=== PATIENT | male | born 1975 | race Caucasian/White ===

== ENCOUNTER → 2020-04-05 | Outpatient (CLI) | payer BC, MEDICAID ==
[~2020-04-05] MED LIST: MELO7.5T46 PO; PRD50T PO
--- NOTE | 2020-04-05 12:33 | Diagnostic Imaging Report ---
EXAMINATION: Lumbar spine 11:42 a.m. INDICATION: Left hip pain. AP, lateral and spot lateral views were obtained. There are no prior studies available for comparison. The lateral view shows the vertebral body heights and alignment to be generally within normal limits. The intervertebral spaces are fairly well-maintained. There is no fracture or acute bony abnormality identified. There is no sign of a paraspinal mass. The sacroiliac joints are symmetrical and within normal limits. IMPRESSION: 1. There is no evidence for an acute bony abnormality. 2. If there is clinical concern regarding spinal stenosis or nerve root encroachment, then MRI would be recommended for further evaluation. Dictated by: Dictated on workstation # [id number]
== END ==
LOC: RAD 11:31
PROVIDERS: ATTEND Chiropractor
DX: M54.17 Radiculopathy, lumbosacral region (principal); M99.03 Segmental and somatic dysfunction of lumbar region; M99.04 Segmental and somatic dysfunction of sacral region; M99.02 Segmental and somatic dysfunction of thoracic region
CPT/HCPCS: 72100

== ENCOUNTER 2020-04-06 13:34 | Emergency (ER) | payer BC, MEDICAID ==
[~2020-04-06] VITALS: Ht 178 cm; Wt 68.0 kg
--- NOTE | 2020-04-06 14:21 | ED Chest Pain ---
General Chief Complaint: Chest Pain Stated Complaint: CP, ARM AND LEG NUMBNESS Source: patient Exam Limitations: no limitations History of Present Illness Date Seen by Provider: Apr 06, 2020 Time Seen by Provider: 14:15 Initial Comments Patient is a 44-year-old male who presents to the emergency room today with a chief complaint of burning substernal chest discomfort that is nonradiating. Onset after lifting up a piece of heavy plywood at approximately 1230 this afternoon. Patient states he had tingling in all of his extremities and felt not quite right. Patient states that he became a little short of breath but denies any diaphoresis or nausea. Patient has never had chest pain before. Patient was recently started on prednisone and meloxicam for some hip pain after lifting a heavy 5 gallon bucket approximately a couple of months ago. Patient was seen by his chiropractor and had some x-rays done of his hip and then was put on the meloxicam and prednisone. Patient states he took the prednisone at approximately 4am this morning. Patient is a heavy smoker. He has no history of hypertension. He has a family history of coronary artery disease in grandparents his maternal grandfather in his 40s from a heart attack. His father in his 60s to 70s from a heart related illness. Patient is concerned about his elevated blood pressure in the 130s over 90s and his rapid heart rate. No recent illnesses, fever, chills, congestion, GI or symptoms. Patient has had a little bit of diarrhea in the last couple of days. All other review of systems reviewed and negative except as stated above. Timing/Duration: 1-3 hours Severity/Quality: mild, burning Location: substernal Radiation: no radiation Activities at Onset: activity Prior CP/Workup: no prior chest pain, no prior cardiac workup ASA po SOCK DRIER: Yes Associated Symptoms: denies symptoms Allergies and Home Medications Allergies Coded Allergies: No Known Drug Allergies (Unverified , 04/06/20) Home Medications Meloxicam 7.5 Mg Tablet, 7.5 MG PO DAILY, (Reported) Patient Home Medication List Home Medication List Reviewed: Yes Review of Systems Review of Systems Constitutional: no symptoms reported, see HPI EENTM: No Symptoms Reported Respiratory: No Symptoms Reported Cardiovascular: Chest Pain Gastrointestinal: No Symptoms Reported Genitourinary: No Symptoms Reported Musculoskeletal: no symptoms reported Skin: no symptoms reported All Other Systems Reviewed Negative Unless Noted: Yes Past Fdhqojg-Pcrhwu-Videts Hx Patient Social History Recent Foreign Travel: No Contact w/Someone Who Travel: No Physical Exam Vital Signs Vital Signs - First Documented 04/06/20 14:07 Temp 36.8 Pulse 98 Resp 18 B/P (MAP) 176/84 (114) Pulse Ox 98 O2 Delivery Room Air Capillary Refill : Height, Weight, BMI Height: '" Weight: lbs. oz. kg; BMI Method: General Appearance: No Apparent Distress, WD/WN Progress/Results/Core Measures Results/Orders Lab Results Laboratory Tests Test 04/06/20 14:20 Range/Units White Blood Count 13.7 H 4.3-11.0 10^3/uL Red Blood Count 4.46 4.30-5.52 10^6/uL Hemoglobin 15.3 13.3-17.7 g/dL Hematocrit 44 40-54 % Mean Corpuscular Volume 98 80-99 fL Mean Corpuscular Hemoglobin 34 25-34 pg Mean Corpuscular Hemoglobin Concent 35 32-36 g/dL Red Cell Distribution Width 12.1 10.0-14.5 % Platelet Count 294 130-400 10^3/uL Mean Platelet Volume 9.6 9.0-12.2 fL Immature Granulocyte % (Auto) 0 % Neutrophils (%) (Auto) 80 H 42-75 % Lymphocytes (%) (Auto) 11 L 12-44 % Monocytes (%) (Auto) 8 0-12 % Eosinophils (%) (Auto) 0 0-10 % Basophils (%) (Auto) 0 0-10 % Neutrophils # (Auto) 11.0 H 1.8-7.8 10^3/uL Lymphocytes # (Auto) 1.5 1.0-4.0 10^3/uL Monocytes # (Auto) 1.1 H 0.0-1.0 10^3/uL Eosinophils # (Auto) 0.0 0.0-0.3 10^3/uL Basophils # (Auto) 0.0 0.0-0.1 10^3/uL Immature Granulocyte # (Auto) 0.0 0.0-0.1 10^3/uL Sodium Level 138 135-145 MMOL/L Potassium Level 3.8 3.6-5.0 MMOL/L Chloride Level 106 98-107 MMOL/L Carbon Dioxide Level 21 21-32 MMOL/L Anion Gap 11 5-14 MMOL/L Blood Urea Nitrogen 13 7-18 MG/DL Creatinine 0.99 0.60-1.30 MG/DL Estimat Glomerular Filtration Rate > 60 BUN/Creatinine Ratio 13 Glucose Level 89 70-105 MG/DL Calcium Level 8.8 8.5-10.1 MG/DL Troponin I < 0.028 <0.028 NG/ML My Orders Orders - KAELA JESUS MD Ed Iv/Invasive Line Start (04/06/20 14:17) Cbc With Automated Diff (04/06/20 14:17) Basic Metabolic Panel (04/06/20 14:17) Troponin I (04/06/20 14:17) Chest 1 View, Ap/Pa Only (04/06/20 14:17) Ekg Tracing (04/06/20 14:17) Lidocaine 2% Viscous 15 Ml (Xylocaine Vi (04/06/20 15:00) Antacid Suspension (Mylanta Suspension (04/06/20 15:00) Ketorolac Injection (Toradol Injection) (04/06/20 15:00) Ketorolac Injection (Toradol Injection) (04/06/20 15:53) Troponin I (04/06/20 17:37) Medications Given in ED Current Medications Medications Dose Ordered Sig/Geovany Route Start Time Stop Time Status Last Admin Dose Admin Al Hydrox/Mg Hydrox/Simethicone 30 ml ONCE ONCE PO 04/06/20 15:00 04/06/20 15:01 DC 04/06/20 15:57 30 ML Ketorolac Tromethamine 15 mg ONCE ONCE IVP 04/06/20 15:00 04/06/20 15:01 DC 04/06/20 15:58 15 MG Lidocaine HCl 5 ml ONCE ONCE PO 04/06/20 15:00 04/06/20 15:01 DC 04/06/20 15:57 5 ML Vital Signs/I&O 04/06/20 14:07 Temp 36.8 Pulse 98 Resp 18 B/P (MAP) 176/84 (114) Pulse Ox 98 O2 Delivery Room Air Progress Progress Note : Time: 17:35 Progress Note On further discussion with the patient he states that he has been having exertional numbness and tingling to all 4 extremities for the last 2-1/2 months. Patient states that it is intermittent. He is concerned that he might have some sort of mold infection or possibly legionnaires disease. He has no cough or shortness of breath. He has no fevers or chills. Patient is concerned because he wears his mask 10 to 12 hours a day and has been doing so for the last year. He is worried about the moisture that collects in his mask. Patient states again that the symptoms have been starting since early to mid January. He has a follow-up appointment with primary care on Saturday of this week which is 2 days from now. At this time the patient has no clinical or objective findings for which further investigation is necessary other than a repeat troponin to rule out cardiac disease. The patient will get a second troponin now is that it will have been approximately 4 hours since the onset of his chest discomfort. He is reassured and advised to follow-up closely with a primary care. He verbalizes understanding, all questions are sought and answered. Initial ECG Impression Date: Apr 06, 2020 Initial ECG Impression Time: 13:41 Initial ECG Rate: 102 Initial ECG Rhythm: Normal Sinus Initial ECG Intervals: Normal Initial ECG Impression: Normal Initial ECG Comparisson: No Previous ECG Available Diagnostic Imaging Diagonstic Imaging: Xray Plain Films/CT/US/NM/MRI: chest Comments [facility], [place] NAME: [facility] REC#: [id number] PT STATUS: REG ER : 1975 PHYSICIAN: KAELA JESUS MD ADMIT DATE: 04/06/20/ER Signed Date of Exam:04/06/20 CHEST 1 VIEW, AP/PA ONLY PATIENT HISTORY: chest pain. TECHNIQUE: Single frontal view of the chest. COMPARISON: None. FINDINGS: The lung volumes are normal. No focal consolidation is seen. No large pleural effusion or pneumothorax is seen. The cardiomediastinal silhouette is normal in size and contour. No acute osseous abnormality is seen. IMPRESSION: No acute pulmonary abnormality seen. Dictated by: Dictated on workstation # [id number] Dict: 04/06/20 1453 Trans: 04/06/20 1547 [id number] [id number] Interpreted by: TESS DAMON MD Electronically signed by: TESS DAMON MD 04/06/20 1547 Counseling-Symptomatic: 3-10 Minutes Follow-up with PCP to: Discuss Further Options Departure Impression Primary Impression: Atypical chest pain Additional Impression: Paresthesia Disposition: 01 HOME, SELF-CARE Condition: Stable Departure-Patient Inst. Decision time for Depature: 18:24 Referrals: DIANE CALVIN MD (PCP/Family) Primary Care Physician Patient Instructions: Chest Pain That Is Not Caused by the Heart (DC) Add. Discharge Instructions: Drink plenty of fluids to stay well-hydrated. Wash your masks often. Keep your follow-up appointment with primary care on Saturday of this week. Return to the emergency department if you have any worsening symptoms or any other new emergent concerns All discharge instructions reviewed with patient and/or family. Voiced understanding. KAELA JESUS MD Apr 06, 2020 14:21
[2020-04-06] MEDS ORDERED: MELO7.5T46 PO (14:25)
[2020-04-06] MEDS ORDERED: PRD50T PO (14:25)
[2020-04-06 14:34] LABS: BASOPHILS % (AUTO) 0 % (0-10); EOSINOPHILS % (AUTO) 0 % (0-10); HEMATOCRIT 44 % (40-54); HEMOGLOBIN 15.3 g/dL (13.3-17.7); LYMPHOCYTES # (AUTO) 1.5 10^3/uL (1.0-4.0); LYMPHOCYTES % (AUTO) 11 % (12-44); MEAN CORPUSCULAR HEMOGLOBIN 34 pg (25-34); MEAN CORPUSCULAR HGB CONC 35 g/dL (32-36); MEAN CORPUSCULAR VOLUME 98 fL (80-99); MEAN PLATELET VOLUME 9.6 fL (9.0-12.2); MONOCYTES # (AUTO) 1.1 10^3/uL (0.0-1.0); MONOCYTES % (AUTO) 8 % (0-12); NEUTROPHILS % (AUTO) 80 % (42-75); PLATELET COUNT 294 10^3/uL (130-400); WHITE BLOOD COUNT 13.7 10^3/uL (4.3-11.0)
[2020-04-06 14:46] LABS: CHLORIDE 106 MMOL/L (98-107); POTASSIUM 3.8 MMOL/L (3.6-5.0); SODIUM 138 MMOL/L (135-145)
[2020-04-06 14:47] LABS: CALCIUM 8.8 MG/DL (8.5-10.1); GLUCOSE 89 MG/DL (70-105)
[2020-04-06 14:49] LABS: CARBON DIOXIDE 21 MMOL/L (21-32)
[2020-04-06 14:51] LABS: CREATININE SERUM 0.99 MG/DL (0.60-1.30); GFR ESTIMATED > 60
[2020-04-06 14:52] LABS: BUN/CREATININE RATIO 13
--- NOTE | 2020-04-06 14:55 | Diagnostic Imaging Report ---
PATIENT HISTORY: chest pain. TECHNIQUE: Single frontal view of the chest. COMPARISON: None. FINDINGS: The lung volumes are normal. No focal consolidation is seen. No large pleural effusion or pneumothorax is seen. The cardiomediastinal silhouette is normal in size and contour. No acute osseous abnormality is seen. IMPRESSION: No acute pulmonary abnormality seen. Dictated by: Dictated on workstation # [id number]
[2020-04-06] MEDS ORDERED: LIDOCAINE 2% VISCOUS 15 ML UDC PO ONE (15:00)
[2020-04-06] MEDS ORDERED: ANTACID SUSP 30 ML UDC (MYLANTA) PO ONE (15:00)
[2020-04-06] MEDS ORDERED: KETOROLAC 15 MG/ML VIAL IVP ONE (15:00)
[2020-04-06] MEDS ORDERED: KETOROLAC 30 MG/ML VIAL ONE (15:53)
[2020-04-06 19:10] VITALS: BP 148/80
== END 2020-04-06 19:10 | disposition home or self-care (01) ==
LOC: EDUNIT# 13:34 → ER 13:36
DX: R07.89 Other chest pain (principal); R20.2 Paresthesia of skin
CPT/HCPCS: 36415; 71045; 80048; 84484; 85025; 93005